=== PATIENT | female | born 1995 | race Caucasian/White ===

== ENCOUNTER 2019-12-21 16:47 | Outpatient (CLI) | payer OTHER ==
--- NOTE | 2019-12-22 11:50 | Ultrasound Report ---
Reason: POSITIVE TEST Procedure Date: 12/21/2019 Accession Number: [id number] / [id number] Procedure: US - OB First Trimester CPT Code: Final Report FULL RESULT: EXAM: FIRST TRIMESTER OBSTETRIC ULTRASOUND (Less than 11 weeks) EXAM DATE: 12/21/2019 06:20 PM. CLINICAL HISTORY: POSITIVE TEST. LMP: Unknown. COMPARISONS: None. TECHNIQUE: Transabdominal and transvaginal ultrasound examination with static image documentation. CLINICAL DATES: EGA 10 weeks 1 day with SASHA 07/17/2020 based on LMP/. ASSESSMENT: Gestational Sac: Single intrauterine. Mean gestational sac diameter: 44 mm = Embryo: CRL (crown-rump length) 32 mm = 10 weeks 1 day. Cardiac activity: 169 beats per minute. Yolk sac: 6 mm. Amniotic fluid: Not accurately assessed at this gestational age. Early placenta: Not visible at this gestational age. Other: No perigestational fluid collection demonstrated. MATERNAL STRUCTURES: Uterus: Anteverted. Unremarkable. Cervix: Closed. Right Ovary/Adnexa: The ovary measures 2.6 x 1.8 x 2.3 cm, volume 5.8 cc. Unremarkable. Left Ovary/Adnexa: The ovary measures 2.9 x 2.5 x 2 cm, volume 7 cc. Possible corpus luteal cyst 2.3 x 1.5 x 1.7 Free Fluid: None. Other: None. IMPRESSION: 1. Single viable intrauterine at EGA 10 weeks 0 days with SASHA 07/18/2020 based on crown-rump length, which is concordant with clinical dating. RADIA
== END 2019-12-21 16:48 | disposition home or self-care (01) ==
LOC: DI 16:47
PROVIDERS: ATTEND Advanced Practice Midwife
DX: Z32.01 Encounter for pregnancy test, result positive (principal)
CPT/HCPCS: 76801; 76817

== ENCOUNTER 2019-12-24 08:00 | Outpatient (CLI) | payer OTHER ==
[2019-12-24 17:56] LABS: BASOPHILS % (AUTO) 0.3 %; EOSINOPHILS # (AUTO) 0.1 10^3/uL (0.0-0.7); EOSINOPHILS % (AUTO) 1.6 %; HGB - HEMOGLOBIN 13.7 g/dL (12.0-16.0); LYMPHOCYTES # (AUTO) 1.9 10^3/uL (1.5-3.5); LYMPHOCYTES % (AUTO) 26.4 %; MEAN CORPUSCULAR HEMOGLOBIN 31.1 pg (27.0-31.0); MEAN CORPUSCULAR HGB CONC 35.6 g/dL (32.0-36.0); MEAN CORPUSCULAR VOLUME 87.3 fL (81.0-99.0); MEAN PLATELET VOLUME 11.4 fL (7.9-10.8); MONOCYTES # (AUTO) 0.4 10^3/uL (0.0-1.0); NEUTROPHILS # (AUTO) 4.9 10^3/uL (1.5-6.6); NEUTROPHILS % (AUTO) 66.4 %; PLT - PLATELET COUNT 176 10^3/uL (130-450); RED BLOOD COUNT 4.41 10^6/uL (4.20-5.40); RED CELL DISTRIBUTION WIDTH 12.6 % (12.0-15.0); WHITE BLOOD COUNT 7.3 x10^3/uL (4.8-10.8)
[2019-12-25 12:19] LABS: HIV AG/AB 4TH GEN NON-REACTIVE (NON-REACTIVE)
[2019-12-25 16:00] LABS: HEPATITIS B SURFACE ANTIGEN NON-REACTIVE (NON-REACTIVE)
[2019-12-25 16:08] LABS: HEPATITIS C ANTIBODY NON-REACTIVE (NON-REACTIVE)
== END 2019-12-24 23:59 | disposition home or self-care (01) ==
LOC: LAB.WCP 08:00
PROVIDERS: ATTEND Advanced Practice Midwife
DX: Z34.90 Encounter for supervision of normal pregnancy, unspecified, unspecified trimester (principal)
CPT/HCPCS: 36415; 81599; 85025; 86762; 86803; 86850; 86900; 86901; 87340; 87389

== ENCOUNTER 2019-12-24 08:00 | Outpatient (CLI) | payer OTHER ==
[2019-12-24 13:17] LABS: MUDS CUTOFF CONCENTRATIONS CUTOFF CONC BELOW:
[2019-12-24 13:20] LABS: BILIRUBIN,URINE NEGATIVE (NEGATIVE); GLUCOSE, URINE (UA) NEGATIVE (NEGATIVE); KETONES,URINE (UA) NEGATIVE (NEGATIVE); LEUKOCYTE ESTERASE, URINE NEGATIVE (NEGATIVE); NITRITE,URINE NEGATIVE (NEGATIVE); OCCULT BLOOD,URINE NEGATIVE (NEGATIVE); PROTEIN,URINE NEGATIVE (NEGATIVE); UROBILINOGEN,URINE 0.2 (NORMAL) E.U./dL (NORMAL)
[2019-12-24 13:22] LABS: CLARITY,URINE HAZY (CLEAR)
[2019-12-24 13:28] LABS: BACTERIA,URINE Moderate /HPF (None Seen); SQUAMOUS EPITHELIAL CELL,UR MOD Squamous (<= Few)
[2019-12-24 13:30] LABS: AMPHETAMINE SCREEN,URINE NEGATIVE (NEGATIVE); BENZODIAZEPINES SCREEN, URINE NEGATIVE (NEGATIVE); COCAINE SCREEN URINE NEGATIVE (NEGATIVE); METHADONE SCREEN, URINE NEGATIVE (NEGATIVE); METHAMPHETAMINES SCREEN, URINE NEGATIVE (NEGATIVE); OPIATE SCREEN, URINE NEGATIVE (NEGATIVE); OXYCODONE SCREEN, URINE NEGATIVE (NEGATIVE); PROPOXYPHENE SCREEN, URINE NEGATIVE (NEGATIVE); TRICYCLIC ANTIDEPRESSANT,URINE NEGATIVE (NEGATIVE)
[2019-12-24 20:52] LABS: TRICHOMONAS VAGINALIS DNA NEGATIVE (NEGATIVE)
== END 2019-12-24 23:59 | disposition home or self-care (01) ==
LOC: LAB.R 08:00
PROVIDERS: ATTEND Advanced Practice Midwife
DX: Z34.90 Encounter for supervision of normal pregnancy, unspecified, unspecified trimester (principal)
CPT/HCPCS: 36415; 80306; 81001; 81599; 85025; 86592; 86762; 86803; 86850; 86900; 86901; 87086; 87340; 87389; 87491; 87591; 87661

== ENCOUNTER 2020-02-18 12:11 | Outpatient (CLI) | payer OTHER ==
--- NOTE | 2020-02-18 17:12 | Ultrasound Report ---
PROCEDURE: OB Detailed Eval INDICATIONS: SCREENING OUTSIDE/PRIOR DATING DATA: Last menstrual period (LMP): 10/11/2019. LMP-based estimated date of delivery (SASHA): 07/17/2020. First dating scan (date and location): 12/07/2019. Estimated date of delivery (SASHA) from first dating scan: 07/18/2020. TECHNIQUE: Real-time scanning was performed of the fetus, with image documentation and biometric measurements. COMPARISON: 12/21/2019. FINDINGS: General: A single living intrauterine gestation is present. Presentation: Breech Placenta: Placental position is posterior, without previa. Amniotic fluid index: 11.1 cm, within normal limits for gestational age. heart rate: 147 beats per minute. Maternal cervical canal: 5.4 cm long; normal length is 2.5 cm or more. biometrics: Biparietal diameter: 4.1 cm, 18 weeks 2 days Head circumference: 15.2 cm, 18 weeks 2 days Abdominal circumference: 13.5 cm, 19 weeks 0 days Femur length: 2.6 cm, 17 weeks 6 days Estimated gestational age from initial scan: 18 weeks 3 days Composite gestational age from present scan: 18 weeks 3 days Estimated weight and percentile: 239 g corresponding to the 44th percentile Measurement variability in biometric dating: +/- 10 days from 12-20 weeks gestation, +/- 2 weeks from 20-30 weeks gestation, +/- 3 weeks at 30 weeks gestation or later. Anatomic survey: Neuro: Ventricles are normal at less than 10 mm. Cisterna magna is normal at 3-11 mm. Cerebellum i s normal in size and morphology. Face: Nose and lips, facial profile are normal. Spine: No evidence for spina bifida. Heart: 4-chambered heart is present, with normal ventricular outflow tracts. Diaphragm: Diaphragm is intact. Stomach: Left-sided stomach is present. Kidneys: No hydronephrosis. Normal is less than 5 mm in 2nd trimester, less than 7 mm in 3rd trimester. Cord: 3 vessel cord has orthotopic insertion. Bladder: Normal in size. Extremities: All 4 extremities are visualized. IMPRESSION: 1. Single living intrauterine demonstrating appropriate interval growth with estimated feta l weight at the 44th percentile. 2. anatomic survey within normal limits. Reviewed by: Brendon Seth MD on 02/18/2020 5:10 PM PDT Approved by: Brendon Seth MD on 02/18/2020 5:10 PM PDT Station ID: [id number]
== END 2020-02-18 12:12 | disposition home or self-care (01) ==
LOC: DI 12:11
PROVIDERS: ATTEND Advanced Practice Midwife
DX: Z36.89 Encounter for other specified antenatal screening (principal)
CPT/HCPCS: 76811

== ENCOUNTER 2020-04-21 11:25 | Outpatient (CLI) | payer OTHER ==
[2020-04-21 13:02] LABS: MEAN CORPUSCULAR HEMOGLOBIN 33.4 pg (27.0-31.0); MEAN CORPUSCULAR HGB CONC 36.7 g/dL (32.0-36.0); MEAN CORPUSCULAR VOLUME 91.1 fL (81.0-99.0); MEAN PLATELET VOLUME 9.9 fL (7.9-10.8); RED BLOOD COUNT 3.59 10^6/uL (4.20-5.40); RED CELL DISTRIBUTION WIDTH 12.7 % (12.0-15.0); WHITE BLOOD COUNT 8.7 x10^3/uL (4.8-10.8)
== END 2020-04-21 11:26 | disposition home or self-care (01) ==
LOC: LAB 11:25
PROVIDERS: ATTEND Advanced Practice Midwife
DX: Z34.90 Encounter for supervision of normal pregnancy, unspecified, unspecified trimester (principal); Z36.89 Encounter for other specified antenatal screening
CPT/HCPCS: 36415; 82950; 85027

== ENCOUNTER 2020-06-23 07:00 | Outpatient (CLI) | payer OTHER | END 2020-06-23 23:59 | disposition home or self-care (01) | LOC: LAB.R 07:00 | PROVIDERS: ATTEND Advanced Practice Midwife | DX: Z34.90 Encounter for supervision of normal pregnancy, unspecified, unspecified trimester (principal); Z36.85 Encounter for antenatal screening for Streptococcus B | CPT/HCPCS: 87797 ==

== ENCOUNTER 2020-07-08 10:15 | Outpatient (CLI) | payer OTHER ==
--- NOTE | 2020-07-08 11:41 | Ultrasound Report ---
PROCEDURE: OB F/U or Repeat INDICATIONS: UTERINE SIZE DATE DISCREPANCY OUTSIDE/PRIOR DATING DATA: Last menstrual period (LMP): 10/11/2019. LMP-based estimated date of delivery (SASHA): 07/17/2020. First dating scan (date and location): [place]. Estimated date of delivery (SASHA) from first dating scan: 07/18/2020. TECHNIQUE: Real-time scanning was performed of the fetus, with image documentation and biometric measurements. Endovaginal scanning: COMPARISON: None. FINDINGS: General: A single living intrauterine gestation is present. Presentation: Vertex Placenta: Placental position is posterior fundal, without previa. Amniotic fluid index: 15.1 cm, for gestational age. The largest pocket is 5 cm. heart rate: 140 beats per minute. Maternal cervical canal: 3.3 cm long; normal length is 2.5 cm or more. biometrics: Biparietal diameter: 9.3 cm Head circumference: 33.3 cm Abdominal circumference: 35 cm Femur length: 6.7 cm Estimated gestational age from initial scan: not applicable. Composite gestational age from present scan: 37 weeks 2 days Estimated weight and percentile: 3258 g, 41% Measurement variability in biometric dating: +/- 10 days from 12-20 weeks gestation, +/- 2 weeks from 20-30 weeks gestation, +/- 3 weeks at 30 weeks gestation or more. Other: Not applicable. IMPRESSION: 1. Estimated weight 3258 g, 41% 2. Composite gestational age from the present scan is 37 weeks 2 days, femur length is incidentally n oted out of range at 34 weeks 2 days. Reviewed by: Cecil Hollis on 07/08/2020 11:40 AM PST Approved by: Cecil Hollis on 07/08/2020 11:40 AM PST Station ID: [id number]
== END 2020-07-08 10:16 | disposition home or self-care (01) ==
LOC: DI 10:15
PROVIDERS: ATTEND Nurse Practitioner Obstetrics & Gynecology
DX: O26.843 Uterine size-date discrepancy, third trimester (principal); Z3A.37 37 weeks gestation of pregnancy
CPT/HCPCS: 76816

== ENCOUNTER 2020-07-15 10:28 | Outpatient (CLI) | payer OTHER | END 2020-07-15 10:29 | disposition home or self-care (01) | LOC: LAB 10:28 | PROVIDERS: ATTEND Advanced Practice Midwife | DX: Z34.90 Encounter for supervision of normal pregnancy, unspecified, unspecified trimester (principal); Z20.828 Contact with and (suspected) exposure to other viral communicable diseases ==

== ENCOUNTER 2020-07-18 04:24 | Inpatient (IN) | payer OTHER ==
[2020-07-18] MEDS ORDERED: TRANEXAMIC ACID 1,000 MG in SODIUM CHLORIDE 0.9% 100ML 100 ML IV PRN (04:39)
[2020-07-18] MEDS ORDERED: CARBOPROST TROMETHAMINE 250 MCG/ML AMP IM PRN (04:39)
[2020-07-18] MEDS ORDERED: SODIUM CHLORIDE FLUSH 0.9% 10 ML SYRINGE IVP PRN (04:39)
[2020-07-18] MEDS ORDERED: METHYLERGONOVINE 0.2 MG/ML VIAL IM PRN (04:39)
[2020-07-18] MEDS ORDERED: LIDOCAINE-MPF 1% 30 ML VIAL ID PRN (04:39)
[2020-07-18] MEDS ORDERED: OXYTOCIN 10 UNIT/ML VIAL IM PRN (04:39)
[2020-07-18] MEDS ORDERED: miSOPROStoL 200 MCG TABLET BC PRN (04:39)
[2020-07-18] MEDS ORDERED: LACTATED RINGERS 1,000 ML IV SCH (05:00)
[2020-07-18 05:06] LABS: BASOPHILS % (AUTO) 0.1 %; EOSINOPHILS # (AUTO) 0.1 10^3/uL (0.0-0.7); LYMPHOCYTES # (AUTO) 2.1 10^3/uL (1.5-3.5); LYMPHOCYTES % (AUTO) 25.3 %; MEAN CORPUSCULAR HEMOGLOBIN 32.7 pg (27.0-31.0); MEAN CORPUSCULAR VOLUME 90.7 fL (81.0-99.0); MEAN PLATELET VOLUME 10.2 fL (7.9-10.8); MONOCYTES # (AUTO) 0.7 10^3/uL (0.0-1.0); MONOCYTES % (AUTO) 7.9 %; NEUTROPHILS # (AUTO) 5.4 10^3/uL (1.5-6.6); NEUTROPHILS % (AUTO) 65.3 %; PLT - PLATELET COUNT 149 10^3/uL (130-450); RED BLOOD COUNT 3.98 10^6/uL (4.20-5.40); RED CELL DISTRIBUTION WIDTH 12.9 % (12.0-15.0); WHITE BLOOD COUNT 8.3 x10^3/uL (4.8-10.8)
--- NOTE | 2020-07-18 05:14 | HISTORY & PHYSICAL EXAMINATION ---
Admit History - Visit Reason Visit Reason: Contractions - : 2 Parity: 1 Premature: 0 Ectopic: 0 : 0 Care: positive: Other ([facility]) Risk/History: positive: None Complications This : positive: None Smoking Status: Never smoker - Mother's Labs Mother's Blood Type: positive: O Mother's RH: positive: Positive GBS: positive: Group B Step Negative Rubella Status: positive: Immune - Other Maternal History Other Maternal History: -24yo at 40.1wks gestation who presents to Labor and Delivery for complaints of contractions. She reports being woken up at 0200 by them. -Reports movement -Denies ctx/VB/LOF - care with [facility] which has been adequate - Complications *none -Dating Criteria *US at 10.1wks c/w LMP -OB Hx *G1:2018 . Girl- Can *G2: current -Medications * vitamin-daily -Allergies *NKDA -Medical History *Non contributory -Surgical History *None -Family History *Non contributory -Social History *Non contributory - Labs, Immunizations, and Findings Initial U/S: 12/21/2019 10.1wks c/w LMP for SASHA of 07/17/2020 O pos/Rubella immune Gentic testing: discussed and declines FAS wnl, EFW 44%ile, posterior placenta, CL 5.94 Glucola: 97 TDAP 04/22/2020 FLU: declines GBS negative HSV: denies self and partner Breast pump Rx: declines, FORMULA only per maternal preference MOD: . desires epidural. Spouse: Emerson. 2yo daughter Can. Having a BOY- Sumeet contraception: didn't like pills last time, made cycle too irregular and wasn't good at remembering. Discussed implant and IUDs. Will discuss with partner. PAP: 04/07/2018-wnl -SVE per RN -Vertex by RN digital exam and GLENN arellano's -EFW by adan'rachel- 7.5#, US on 07/08/2020 efw - 41% -FHTs per flowsheet -Assessment *24yo at 40.1wks gestation in active labor * Heart Tones- Category I -Plan *Admit to L&D *Monitoring- Continuous *Comfort measures available- position changes, whirlpool tub, fentanyl, and epidural per maternal preference *Diet/Activity- per maternal preference *Anticipate Meds/Allgy - Allergies Allergies/Adverse Reactions: Allergies Allergy/AdvReac Type Severity Reaction Status Date / Time No Known Drug Allergies Allergy Verified 07/18/20 04:52 Review of Systems - All Other Systems All Other Systems: reports: Reviewed and negative Physical - Abdominal Exam Vital Signs: Temp Pulse Resp BP Pulse Ox 36.4 C L 77 15 139/66 H 99 07/18/20 04:43 07/18/20 04:43 07/18/20 04:43 07/18/20 04:43 07/18/20 04:43 Contraction Frequency (min/apart): 1-5 Contraction Intensity: positive: Moderate Uterine Resting Tone: positive: Soft - Monitoring Heart Rate Baseline: 140 Strip Review: positive: Category I (moderate variability, no accels, no decels) - Presentation Presentation: positive: Vertex - Vaginal Exam Membranes: positive: Membranes intact Dilation (in cm): 5 Effacement (%): 90 Station: positive: -1 Cervical Position: positive: Anterior Plan for Labor - Plan For Labor I expect patient to be DC'd or transferred within 96 hours.: Yes
[2020-07-18] MEDS ORDERED: fentaNYL 100 MCG/2 ML VIAL ONE (05:44)
[2020-07-18] MEDS ORDERED: ROPIVACAINE 0.2% 200 MG/100 ML BAG EP ONE (05:44)
[2020-07-18] MEDS ORDERED: NALBUPHINE 10 MG/ML AMP IVP PRN (05:59)
[2020-07-18] MEDS ORDERED: ePHEDrine 50 MG/ML VIAL IVP PRN (05:59)
[2020-07-18] MEDS ORDERED: NALOXONE 0.4 MG/ML VIAL IVP PRN (05:59)
[2020-07-18] MEDS ORDERED: ROPIVACAINE 0.2% 200 MG/100 ML BAG EP PRN (05:59)
[2020-07-18] MEDS ORDERED: ONDANSETRON 4 MG/2 ML VIAL IVP PRN (05:59)
--- NOTE | 2020-07-18 05:59 | ANESTHESIA ---
Pre-Anesthesia VS, & Labs - Diagnosis active labor - Procedure vaginal delivery Vital Signs: Temp Pulse Resp BP Pulse Ox 36.4 C L 77 15 139/66 H 99 07/18/20 04:43 07/18/20 04:43 07/18/20 04:43 07/18/20 04:43 07/18/20 04:43 Height: 5 ft 3 in Weight (kg): 75.75 kg Body Mass Index: 29.5 BMI Classification: Overweight - NPO Other (N/A labor) - Is Patient ?: Yes - Lab Results Current Lab Results: Laboratory Tests 07/18/20 04:58: WBC 8.3, RBC 3.98 L, Hgb 13.0, Hct 36.1 L, MCV 90.7, MCH 32.7 H, MCHC 36.0, RDW 12.9, Plt Count 149, MPV 10.2, Neut # (Auto) 5.4, Lymph # (Auto) 2.1, Harlan # (Auto) 0.7, Eos # (Auto) 0.1, Baso # (Auto) 0.0, Absolute Nucleated RBC 0.00, Nucleated RBC % 0.0 07/18/20 04:58: Blood Type O POSITIVE, Antibody Screen NEGATIVE Fish Bones: 07/18/20 04:58 Home Medications and Allergies Active Medications Carboprost Tromethamine (Carboprost Tromethamine 250 Mcg/Ml Amp) 250 mcg IM Q15M PRN PRN Reason: Step 4: Hemorrhage protocol Stop: 07/23/20 04:39 Lactated Ringer's (Lr) 1,000 mls @ 150 mls/hr IV .[id number] NELSON Last Admin: 07/18/20 05:15 Dose: 150 mls/hr Documented by: Oxytocin/Sodium Chloride (Pitocin/Sodium Chloride) 500 mls @ 999 mls/hr IV PRN PRN; Protocol PRN Reason: POST- HEMORR PREVENTION Stop: 07/23/20 04:39 Tranexamic Acid 1,000 mg/ (Sodium Chloride) 110 mls @ 660 mls/hr IV .ONCE PRN PRN Reason: EBL >1200mL and within 3hr Stop: 07/23/20 04:39 Lidocaine HCl (Lidocaine-Mpf 1% 30 Ml Vial) 30 ml ID .ONCE PRN PRN Reason: PERINEAL REPAIR Stop: 07/23/20 04:39 Methylergonovine Maleate (Methylergonovine 0.2 Mg/Ml Vial) 0.2 mg IM .ONCE PRN PRN Reason: Step 2: Hemorrhage protocol Stop: 07/23/20 04:39 Misoprostol (Misoprostol 200 Mcg Tablet) 800 mcg BC .ONCE PRN PRN Reason: Step 3: Hemorrhage protocol Stop: 07/23/20 04:39 Oxytocin (Oxytocin 10 Unit/Ml Vial) 10 unit IM .ONCE PRN PRN Reason: Step one: If no IV access Stop: 07/23/20 04:39 Sodium Chloride (Sodium Chloride Flush 0.9% 10 Ml Syringe) 10 ml IVP PRN PRN PRN Reason: NEEDED PER PROVIDER ORDERS Sodium Chloride (Sodium Chloride Flush 0.9% 10 Ml Syringe) 10 ml IVP 01 00,0900,1700 NELSON Allergies/Adverse Reactions: Allergies Allergy/AdvReac Type Severity Reaction Status Date / Time No Known Drug Allergies Allergy Verified 07/18/20 04:52 Anes History & Medical History - Anesthetic History Family history of Anesthesia Complications: Denies Family history of Malignant Hyperthermia: Denies - Medical History Cardiovascular: reports: None Pulmonary: reports: None Gastrointestinal: reports: None Urinary: reports: None Neuro: reports: None Musculoskeletal: reports: None Endocrine/Autoimmune: reports: None Blood Disorders: reports: None Skin: reports: None Smoking Status: Never smoker Psychosocial: reports: No issues indicated History of Cancer?: No - Obstetrical History : 2 Parity: 1 Events: positive: None Complications: positive: None Exam General: Alert, Oriented x3, Cooperative, No acute distress Dental: WNL Mouth Openin Fingerbreadth Neck Mobility: Normal Mallampati classification: II Mental/Cognitive Status: Alert/Oriented X3, Normal for patient Plan Anesthesia Type: Epidural Consent for Procedure(s) Verified and Reviewed: Yes Code Status: Attempt Resuscitation ASA classification: 2-Mild systemic disease Is this case an emergency?: No
--- NOTE | 2020-07-18 07:43 | PROVIDER PROGRESS NOTE ---
Labor Progress Note - Uterine Monitoring Uterine Monitoring Mode: positive: External toco Contraction Frequency (min/apart): 4-6 Contraction Intensity: positive: Moderate to strong Uterine Resting Tone: positive: Soft - Monitoring Monitor Mode: positive: External ultrasound Heart Rate Baseline: 130 Heart Rate Variability: positive: Moderate (6-25 bmp) Accelerations: positive: Present, 15x15 Decelerations: positive: None Strip Review: positive: Category I - Labor Progress Note Labor Progress Note/Additional Text: S: Patient left side lying and comfortable with her epidural. She denies concerns or complaints at this time. Partner supportive at the bedside. O: BP 99/46, HR 57 FHR baseline 130s, moderate variability, + accels, no decels Contractions palpate moderate-strong every 4-6 minutes with soft resting tone SVE 1 hour age 5/90/-1. Vertex. Membranes intact A: 24yo @ 40.1wks gestation Active labor FHR Category I GBS negative P: Continue expectant management Continuous monitoring Maintain epidural for pain management Anticipate
[2020-07-18] MEDS ORDERED: SODIUM CHLORIDE FLUSH 0.9% 10 ML SYRINGE IVP SCH (09:00)
[2020-07-18] MEDS: OXYTOCIN/SODIUM CHLORIDE 500 ML IV PRN ×2 (10:01→11:55)
[2020-07-18] MEDS ORDERED: HYDROCORTISONE 1% CREAM 28 GM TUBE PR PRN (10:14)
[2020-07-18] MEDS ORDERED: WITCH HAZEL/GLYCERIN 1 PAD TOP PRN (10:14)
--- NOTE | 2020-07-18 10:29 | DELIVERY NOTE ---
Delivery Note - Labor Labor: positive: Spontaneous - Delivery Method Delivery Method: positive: Spontaneous vaginal delivery - Presentation Presentation: positive: Vertex, JACQUE - right occiput anterior - Nuchal Cord Nuchal Cord: positive: None - Amniotic Fluid Description Amniotic Fluid Description: positive: Clear - Episiotomy Type Episiotomy Type: positive: None - Laceration Laceration: positive: None - Delivery Outcome Delivery Outcome: positive: Livebirth - Al[place] : positive: Placed in direct skin contact with mother, Stimulated, Warmed, [place] used Alva sex: positive: Male - Cord Cord: positive: 3 vessels - Placenta Placenta: positive: Intact, Spontaneous - Estimated Blood Loss Estimated Blood Loss (in cc): 250 - Post Delivery Events Post Delivery Events: positive: No post delivery events - Delivery Comments (Free Text/Narrative) Delivery Comments (Free Text/Narrative): Labor: This 24yo @ 40.1wks gestation presented on 07/18/2020 at approximately 0430 with c/o contractions and was noted to be in early labor with SVE 5/90/-1 and vertex with intact membranes. FHR pattern demonstrated Category I pattern with one prolonged, late deceleration in close proximity to delivery - overall reassuring. Normal labor course. Epidural placed per maternal request. Patient progressed to anterior lip with increased pressure at 0930 and with onset of active pushing at 0931. AROM occurred at 0935 and was noted to be a small amount of clear fluid. Pt reached c/c/+1 at 0940. : Normal of viable male infant on 07/18/2020 @ 0952. No nuchal cord. The was placed on maternal abdomen, stimulated, dried, and placed skin to skin. 's were 8/9 at 1 and 5 min respectively. Pitocin administered via IV for hemostasis. The umbilical cord was allowed to stop pulsating at which time it was doubly clamped by CNM and cut by FOB. 3VC. Cord blood was obtained. Fundal massage and gentle cord traction applied for active management of the third stage. Placenta delivered spontaneously and intact at 0959. EBL 250mL. Fourth stage: Uterine fundus firm and there is no excessive bleeding. The perineum, vagina, and cervix were inspected and found to be intact. Skin to skin contact initiated. Family bonding well. Both mother and baby were left in stable condition.
[2020-07-18] MEDS: ACETAMINOPHEN 500 MG TABLET PO SCH (12:12)
[2020-07-18] MEDS: IBUPROFEN 600 MG TABLET PO SCH ×2 (12:12→21:43)
[2020-07-18] MEDS ORDERED: DOCUSATE SODIUM 100 MG CAPSULE PO SCH (21:00)
[2020-07-19] MEDS: ACETAMINOPHEN 500 MG TABLET PO SCH ×2 (00:04→08:57)
[2020-07-19] MEDS: IBUPROFEN 600 MG TABLET PO SCH ×2 (03:20→08:57)
--- NOTE | 2020-07-19 07:03 | PROVIDER PROGRESS NOTE ---
Subjective - Subjective Subjective: FINAL PROGRESS NOTE S: Bonding well with baby. Bottle feeding exclusively without difficulty. Pain well controlled with oral medications. Bleeding decreased and is light. Urinating without difficulty or pain. States she is ready and excited to go home today. O: BP 121/60, HR 66, RR 18, T 36.9 Heart RRR w/o M/G/R, lungs CTAB, abdomen soft and nontender with fundus firm at U-2, perineum intact, light lochia rubra. Bilateral LE's no edema. A: 24yo -->P2 PPD#1 s/p TSVD of viable male Bottlefeeding Perineum intact P: Discharge home today. Reviewed pp self care and warning s/sx and when to present. Encouraged continuation of ibuprofen and tylenol OTC PRN pain. F/u in at [facility] in 1 week for routine pp visit or sooner PRN. Pt verbalized understanding and agrees to above plan. She denies further questions or concerns at this time. Objective - Vital Signs/Intake & Output Vital Signs: Vital Signs x48h Temp Pulse Resp BP Pulse Ox 07/19/20 03:24 36.9 C 64 18 121/60 99 07/18/20 23:54 36.7 C 55 L 18 120/65 100 Intake & Output: Intake & Output 07/16/20 07/17/20 07/18/20 07/19/20 23:59 23:59 23:59 23:59 Intake Total 1500 Balance 1500 - Lab Results Fish Bones: 07/18/20 04:58
--- NOTE | 2020-07-19 07:13 | Discharge Plan ---
Discharge Plan Problem Reviewed?: Yes Disposition: Home, Self Care Condition: Good Diet: Regular Activity Restrictions: No Restrictions Shower Restrictions: No Weight Bearing: Full Weight No Smoking: If you smoke, Please STOP! Call for help. Follow-up with: Dasia Rae CNM, ARNP [Provider Admit Priv/Credential] -
--- NOTE | 2020-07-19 08:42 | DISCHARGE SUMMARY ---
Physician: SLY Francois DATE OF ADMISSION: 07/18/2020 DATE OF DISCHARGE: 07/19/2020 DIAGNOSES ON ADMISSION 1. A 24-year-old G2, P1-0-0-1 at 40.1 weeks' gestation. 2. Active labor. 3. Group B streptococcus negative. DIAGNOSES ON DISCHARGE 1. A 24-year-old G2, P2-0-0-2, status post spontaneous vaginal delivery on 07/18/2020. 2. Normal recovery. HISTORY OF PRESENT ILLNESS: She is a patient of [facility], who presented on 2019 with complaints of contractions. Cervix was noted to be 5 cm dilated, 90% effaced, -1 station i n vertex position. She was admitted for expectant management. Epidural placed per maternal request. The patient spontaneously progressed to deliver a viable male on 07/18/2020 at 0952. Apgars were 9 and 9 at one and five minutes respectively. EBL 250 mL. The perineum, vagina and cervix wer e inspected, and noted to be intact. She has been doing well in her course. She is ambulating and tolerating a regular diet. She is urinating without difficulty and her lochia is normal. Her pain is well controlled with oral medications. She will be discharged home today on day #1 with instructions to continue ta zofia ibuprofen and Tylenol [id number] as needed for pain management. She intends to follow up with myself at [facility] in 1 week for a routine visit. She has been gi maria del carmen precautions to call if she has any worsening fevers, chills, abdominal pain, increased bleeding o r foul-smelling vaginal lochia. TD: 07/19/2020 07:18
[2020-07-19 18:40] VITALS: BP 121/58
--- NOTE | 2020-07-19 20:04 | Labor Flowsheet ---
Labor Flowsheet Datetime Report Generated by CPN: 07/19/2020 20:04 Datetime: 07/18/2020 23:54 VITAL SIGNS NBP Sys/Nancy/Mean (mmHg): 120 : 65 : 77 Pulse: 47 Datetime: 07/18/2020 13:57 Membranes Ruptured Date/Time: 07/18/2020 09:35 Amniotic Fluid Odor: Normal Datetime: 07/18/2020 13:24 SpO2 (%): 99 Datetime: 07/18/2020 11:45 Stage of : Recovery PAIN Pain Scale: 4 Pain Presence: Constant Pain Type: Cramping Pain Location: Abdomen Datetime: 07/18/2020 09:59 LaborFlag: Labor Datetime: 07/18/2020 09:52 UTERINE ACTIVITY Monitor Mode: External Frequency (min): 2-4 Quality: Moderate Duration (sec): 40-80 Pattern: Normal: <= 5 Contractions in 10 Minutes Resting Tone (Palpate): Relaxed ASSESSMENT A Monitor Mode: Telemetry FHR Baseline Rate : 145 Variability: Moderate 6-25 bpm Accelerations: None Decelerations: Variable Category: Category II Datetime: 07/18/2020 09:40 VAGINAL EXAM Dilatation (cm): 10.0 Effacement (%): 100 Station: 0 Exam by: Dasia Kyra Datetime: 07/18/2020 09:35 Membrane Status: Ruptured Membranes Rupture Method: Artificial Amniotic Fluid Color: Clear Amniotic Fluid Amount: Small Datetime: 07/18/2020 09:31 STAGE 2 Pushing: Coached on Pushing Pushing Position: Pushing with Contractions Pushing Progress: Descent with Pushing Datetime: 07/18/2020 09:30 Monitor Interventions for UA: [place] Adjusted Contraction Comments: ctx continue to trace poorly. RN x 2 @ bedside. Vaginal Exam Comments: anterior lip I/O Interventions: Day Discontinued Patient Care Comments: 75ml clear yellow urine Datetime: 07/18/2020 09:28 Communication Comments: A Kyra @ bedside Datetime: 07/18/2020 09:20 Provider Reviewed Strip: No COMMUNICATION Communication: Call/Page Placed to Provider Provider Notified (Name): CNM Kyra Notification Reason: Status Update; Status; Labor Status; Maternal Vital Sign Change Datetime: 07/18/2020 09:14 Patient Position/Activity: Left Lateral Datetime: 07/18/2020 07:53 Vaginal Bleeding: None Cervix, Consistency: Soft Cervix, Position: Midposition Datetime: 07/18/2020 07:20 Monitor Interventions for FHR: Ultrasound Adjusted Comments: US re-placed; fell off while patient self-repositioning Datetime: 07/18/2020 07:15 Vital Sign Comments: ROM in BLE limited by regional anesthesia MATERNAL ASSESSMENT Level of Consciousness: Alert DTR's/Clonus: DTRs 2+ Headache: Denies Breath Sounds, Left: Clear and Equal Breath Sounds, Right: Clear and Equal Nausea/Vomiting: Denies RUQ Epigastric Pain: Denies Anesthesia Level Check: T10- Umbilicus TEACHING Instructional Method: Verbal; Patient Instructed; Family/Support Person Instructed Plan of Care: Plan of Care Discussed; Vaginal Delivery; Labor Unit Routine: Call Panda; Unit Personnel Pain Management: Epidural Related: Activity and Rest Datetime: 07/18/2020 05:49 Epidural Procedure: Loading Dose Datetime: 07/18/2020 05:35 PROCEDURE TIME OUT Procedure Verify: Correct Patient Identity; Correct Side and Site are Marked; Accurate Procedure Co nsent Form; Agreement on Procedure to be Done; Correct Patient Position; Addressed Need to Administer Antibiotics or Fluids for Irrigation; Safety Precautions Based on Patient History or Medication Use ANESTHESIA Anesthesia Plans: Epidural Epidural Positioning: Sitting Datetime: 07/18/2020 05:30 Pain Coping: Breathing Through Contractions Comfort Measures: Breathing/Relaxation; Family Support Datetime: 07/18/2020 05:15 Oxygen Method: Room Air Datetime: 07/18/2020 05:06 Anesthesia Comments: requesting epidural Datetime: 07/18/2020 05:03 Pain Relief Measures: Comfort Measures Labor/Induction: Labor Stages Datetime: 07/18/2020 04:57 PATIENT CARE IV/Blood Work: IV Started
== END 2020-07-19 10:30 | disposition home or self-care (01) | DRG 807 ==
LOC: WFO 04:24 → FBP 04:25 → WFO 04:38 → FBP 04:39
PROVIDERS: ADMIT Advanced Practice Midwife; ATTEND Nurse Practitioner Obstetrics & Gynecology
PROC: 10E0XZZ Delivery of Products of Conception, External Approach (ICD-10-PCS; principal; 2020-07-18)
DX: O80 Encounter for full-term uncomplicated delivery (principal); Z37.0 Single live birth; Z3A.40 40 weeks gestation of pregnancy
CPT/HCPCS: 85025; 86850; 86900; 86901; 99213; A9270; J7120

== ENCOUNTER 2023-09-28 10:53 | Emergency (ER) | payer OTHER ==
[2023-09-28 11:04] VITALS: BP 127/77; O2SAT 99
--- NOTE | 2023-09-28 11:12 | ED Physician Documentation ---
History of Present Illness - Stated complaint Stated Complaint: BODY RASH - Chief complaint Chief Complaint: Allergic Rx - History obtained from History obtained from: Patient - Additonal information Additional information: Patient is a 27-year-old female presenting for evaluation of hives that she woke up with this morning. She is started a new vitamin supplement. She otherwise denies new food, detergents or lotions, other medications. She denies chest tightness or feeling short of air. No oral lesions. She has not taken anything for her symptoms. Denies any known allergies. Review of Systems Constitutional: denies: Fever Cardiac: denies: Chest pain / pressure Respiratory: denies: Dyspnea GI: denies: Abdominal Pain Skin: reports: Rash PD PAST MEDICAL HISTORY - Past Medical History Past Medical History: No Cardiovascular: None Respiratory: None Neuro: None Endocrine/Autoimmune: None GI: None : None HEENT: None Psych: None Musculoskeletal: None Derm: None - Past Surgical History Past Surgical History: No - Present Medications Home Medications: Ambulatory Orders Medication Instructions Recorded Confirmed Cetirizine HCl [Zyrtec] 10 mg PO DAILY PRN #7 tablet 09/28/23 diphenhydrAMINE [Benadryl] 25 - 50 mg PO Q6H PRN #30 cap 09/28/23 - Allergies Allergies/Adverse Reactions: Allergies Allergy/AdvReac Type Severity Reaction Status Date / Time No Known Drug Allergies Allergy Verified 09/28/23 10:57 - Social History Does the pt smoke?: No Smoking Status: Never smoker Does the pt drink ETOH?: No Does the pt have substance abuse?: No - Immunizations Immunizations are current?: Yes - POLST Patient has POLST: No PD ED PE NORMAL - General General: Alert and oriented X 3, No acute distress, Well developed/nourished - HEENT HEENT: Atraumatic, Moist mucous membranes, Pharynx benign - Neck Neck: Supple, no meningeal sign - Cardiac Cardiac: RRR, Strong equal pulses - Respiratory Respiratory: No respiratory distress, Clear bilaterally - Abdomen Abdomen: Soft, Non tender - Derm Derm: Other (Blanching erythema, Urticaria to neck, ankles, wrists) - Neuro Neuro: Normal speech Results - Vitals Vitals: Vital Signs - 24 hr 09/28/23 10:57 Temperature 36.7 C Heart Rate 68 Respiratory 16 Rate Blood Pressure 127/77 O2 Saturation 99 PD Medical Decision Making - ED course Complexity details: re-evaluated patient ED course: Pt Presenting for evaluation of rash. Appears to have hives and blanching erythema to right neck, wrists and ankles.No signs of airway compromise or oral lesions. Has started A new vitamin supplement which could be the source. I did recommend she stop this. Gave her a dose of Decadron as Benadryl given the widespread distribution of her rash. Patient did have some improvement while being monitored here. Counseled on continued supportive care and Benadryl as needed. Advised on need for follow-up as well as concerning symptoms to return for. Departure - Departure Disposition: 01 Home, Self Care Clinical Impression: Rash and nonspecific skin eruption Condition: Stable Instructions: ED Dermatitis Non Specific Rash Prescriptions: diphenhydrAMINE [Benadryl] 25 - 50 mg PO Q6H PRN #30 cap PRN Reason: Itching Cetirizine HCl [Zyrtec] 10 mg PO DAILY PRN #7 tablet PRN Reason: Allergy Symptoms Comments: You appear to be having an allergic reaction. Do not take the new vitamin supplements. I have given you a dose of a steroid here. Continue with benadryl as needed for hives/itching. I have sent prescriptions to [facility]. Follow up with primary care provider. Return to ER with worsening symptoms. Forms: PCP List Discharge Date/Time: 09/28/23 12:02
[2023-09-28] MEDS: CHERRY SYRUP 10 ML UDC PO ONE (11:20)
[2023-09-28] MEDS: diphenhydrAMINE 25 MG CAPSULE PO STA (11:20)
[2023-09-28] MEDS: DEXAMETHASONE 10 MG/ML VIAL PO STA (11:20)
== END 2023-09-28 12:02 | disposition home or self-care (01) ==
LOC: ED 10:53
DX: R21 Rash and other nonspecific skin eruption (principal)
CPT/HCPCS: 99282; 99283; A9270